=== PATIENT | male | born 1990 | race Caucasian/White ===

== ENCOUNTER 2017-02-27 15:53 | Emergency (ER) | payer MEDICAID ==
[~2017-02-27] VITALS: Ht 185.4 cm; Wt 54.5 kg
[2017-02-27] MEDS ORDERED: PARO20TA24 PO (16:15)
[2017-02-27] MEDS ORDERED: PANTOPRAZOLE SODIUM 40 MG DR TABLET PO ONE (17:00)
[2017-02-27] MEDS ORDERED: DONNATAL/LIDOCAINE/MAALOX 55 ML BOTTLE PO ONE (17:00)
[2017-02-27] MEDS ORDERED: LORazepam 1 MG TABLET PO ONE (17:15)
[2017-02-27 18:05] VITALS: BP 126/82
== END 2017-02-27 18:24 | disposition home or self-care (01) ==
LOC: EMS 15:55
DX: F41.9 Anxiety disorder, unspecified (principal); R10.13 Epigastric pain
CPT/HCPCS: 99284; Z7610